=== PATIENT | male | born 1965 | race Caucasian/White ===

== ENCOUNTER 2020-07-27 07:18 | Inpatient (IN) | payer MEDICARE, MEDICAID ==
[~2020-07-27] VITALS: Ht 175.3 cm; Wt 92.6 kg
[2020-07-27] VITALS (438 sets, daily range): BP systolic 92–131; BP diastolic 58–76; PULSE 73–106; TEMP 97.1–98.1; O2SAT 94–100
[~2020-07-27 07:18] MED LIST: DESYREL 50MG50 MG PO; GLUCOPHAGE500 MG/TAB PO; NORCO 325 MG-7.1 TAB PO; PRINIVIL20 MG PO
--- NOTE | 2020-07-27 08:37 | NUR ---
Admitted to ICU 5 via stretcher with [facility] transporting from [facility]. Awakens easily when name called. ET 8.0 tube at 26cm, ventilator attached. Dr. Calabrese here at bedside. Assessment complete, monitors applied.
[2020-07-27 10:42] LABS: ARTERIAL BLD GAS TCO2 CT 24.4; ARTERIAL BLOOD GAS HCO3 23.3 meq/L (22-26); ARTERIAL BLOOD GAS PCO2 37.5 mmHg (35-45); ARTERIAL BLOOD GAS pH 7.41 (7.35-7.45)
[2020-07-27 10:44] LABS: HEMATOCRIT 37.2 % (42.0-52.0); HEMOGLOBIN 11.9 g/dl (13.5-18.0); MEAN CELL VOLUME 88 fl (80.0-100.0); MEAN CORPUSCULAR HEMOGLOBIN 28 pg (27.0-31.0); MEAN CORPUSCULAR HGB CONC 32 g/dl (33.0-37.0); MEAN PLATELET VOLUME 10.1 fl (7.4-10.4); PLATELET COUNT 232 K/mm3 (130-400); RED BLOOD COUNT 4.25 M/mm3 (4.20-5.60); REDCELL DISTRIBUTION WIDTH-CV 14.3 % (11.5-14.5)
[2020-07-27 10:53] LABS: ALBUMIN 3.4 gm/dL (3.5-5.0); BILIRUBIN,TOTAL 0.5 mg/dL (0.0-1.0); CALCIUM 8.1 mg/dL (8.4-10.2); CREATININE, serum 0.69 (0.66-1.25); POTASSIUM 4.9 mmol/L (3.4-5.0); TOTAL PROTEIN 5.8 gm/dL (6.4-8.2)
[2020-07-27] MEDS ORDERED: ZOLOFT 100MG100 MG PO (10:53)
[2020-07-27] MEDS ORDERED: LIPITOR 40MG TA40 MG PO (10:53)
[2020-07-27 10:54] LABS: MAGNESIUM 1.7 mg/dL (1.6-2.3); PHOSPHOROUS 4.5 mg/dL (2.5-4.5)
[2020-07-27] MEDS ORDERED: HYDRODIURIL50 MG PO (10:54)
[2020-07-27] MEDS ORDERED: JARDIANCE25 PO (10:56)
[2020-07-27 11:04] LABS: TROPONIN-I 0.022 ng/mL (0.000-0.035)
[2020-07-27 11:13] LABS: C-REACTIVE PROTEIN 1.3 mg/dL (0.0-0.9)
--- NOTE | 2020-07-27 11:35 | NUR ---
Spoke with patient's mom, Carley, updates given. Established emergency contact. Aware patient is COVID negative and could have 1 visitor while hospitalized, states understanding.
[2020-07-27 11:37] LABS: BAND 8 % (0-10); LYMPHOCYTE 7 % (20.0-51.0); NEUTROPHILS 84 % (42.0-75.2); PLATELET ESTIMATE NORMAL (NORMAL)
--- NOTE | 2020-07-27 11:42 | NUR ---
The patient was brought from [facility], intubated. Clinical Assistant contacted the patient's sister, Cara Gaines #[phone] to complete initial intake. The patient lives alone (with his dog, Alessandro) in [place]. Cara lives nearby and is caring for the patient's insulin needs. The patient uses a nebulizer and is independent with ADLs. The patient's PCP is Dr. Montejo and patient receives medications from [facility]. The patient does not have advanced directives in the EMR. Cara states they are complete and will have the patient's mother, Carley #[phone] bring in copy. The plan is to return home but SW will follow to ensure the patient has the safest discharge disposition as possible. PT/OT ordered.
--- NOTE | 2020-07-27 12:55 | NUR ---
To CT via bed with RT at side for airway support. [address] Mom calls for update, given. Mom states OK to share information with Kayla Amrik, as she is patient's cousin.
[2020-07-27 14:54] LABS: MUCOUS Present /lpf; PH 5 (5-8); SQUAMOUS EPITHELIAL 0-2 /hpf; URINE APPEARANCE Clear; URINE BACTERIA Rare /hpf; URINE BILIRUBIN Negative (NEGATIVE); URINE BLOOD 1+ (NEGATIVE); URINE COLOR Yellow; URINE GLUCOSE 3+ (NEGATIVE); URINE KETONE Trace (NEGATIVE); URINE LEUKOCYTE ESTERASE Negative (NEGATIVE); URINE NITRATE Negative (NEGATIVE); URINE PROTEIN(semi-quant) Negative (NEGATIVE); URINE UROBILINOGEN Negative (NEGATIVE)
--- NOTE | 2020-07-27 17:00 | NUR ---
Sedation vacation done at this time. Will monitor for s/s increased agitation or pain.
--- NOTE | 2020-07-27 19:25 | NUR ---
Received report from SAMIA Cornell. All drips and lines confirmed at the bedside. Bed is in the lowest position and all alarms are on. The call light is within reach. No further needs noted at this time. Will continue to monitor.
[2020-07-27 21:24] LABS: ARTERIAL BLOOD GAS BASE EXCESS -2.6 (-2-2); ARTERIAL BLOOD GAS HCO3 21.9 meq/L (22-26); ARTERIAL BLOOD GAS PCO2 37.1 mmHg (35-45); ARTERIAL BLOOD GAS PO2 113.2 mmHg (80-100); ARTERIAL BLOOD GAS pH 7.39 (7.35-7.45)
[2020-07-27 21:32] LABS: COLLECTION METHOD CLEAN CATCH
[2020-07-28] VITALS (806 sets, daily range): BP systolic 107–132; BP diastolic 66–84; PULSE 72–94; TEMP 97.3–98.1; O2SAT 65–100
--- NOTE | 2020-07-28 00:12 | NUR ---
Updated patient's mother, Carley, over the phone.
[2020-07-28 04:06] LABS: BASO % 0.1 % (0.0-2.0); EOS % 0.1 % (0-4.0); GRAN # 11.2 (1.4-6.5); GRAN % 83.6 % (42.2-75.2); HEMATOCRIT 38.4 % (42.0-52.0); HEMOGLOBIN 12.3 g/dl (13.5-18.0); LYMPH # 1.1 (1.2-3.4); LYMPH % 8.2 % (20.0-51.0); MEAN CELL VOLUME 88 fl (80.0-100.0); MEAN CORPUSCULAR HEMOGLOBIN 28 pg (27.0-31.0); MEAN CORPUSCULAR HGB CONC 32 g/dl (33.0-37.0); MONO % 7.2 % (1.7-9.3); PLATELET COUNT 252 K/mm3 (130-400); RED BLOOD COUNT 4.38 M/mm3 (4.20-5.60); REDCELL DISTRIBUTION WIDTH-CV 14.6 % (11.5-14.5)
[2020-07-28 04:20] LABS: CALCIUM 8.2 mg/dL (8.4-10.2); CREATININE, serum 0.72 (0.66-1.25); PHOSPHOROUS 3.8 mg/dL (2.5-4.5); POTASSIUM 3.7 mmol/L (3.4-5.0)
[2020-07-28 04:45] LABS: ARTERIAL BLD GAS O2 SATURATION 95.2 % (92-100); ARTERIAL BLD GAS TCO2 CT 26.6; ARTERIAL BLOOD GAS BASE EXCESS -0.4 (-2-2); ARTERIAL BLOOD GAS HCO3 25.2 meq/L (22-26); ARTERIAL BLOOD GAS PCO2 45.3 mmHg (35-45); ARTERIAL BLOOD GAS PO2 78.2 mmHg (80-100); ARTERIAL BLOOD GAS pH 7.36 (7.35-7.45)
--- NOTE | 2020-07-28 05:47 | NUR ---
PATIENT HAS NOT BEEN INTUBATED FOR 24HOURS. WILL HOLD OFF ON CPAP TRIAL THIS AM.
--- NOTE | 2020-07-28 07:20 | NUR ---
Bedside report given to SAMIA Cobos. Patient denies further needs at this time.
--- NOTE | 2020-07-28 07:44 | NUR ---
Sedation set to standby for AM lab draws. Sedation off a total of approximately 15 minutes. Patient alert and oriented x 4 prior to turning off sedation. Resumed sedation to aid with compliance with ET tube.
--- NOTE | 2020-07-28 09:40 | NUR ---
Initial visit; Patient thanked Bag Valver for looking in on him and offering prayer and God's blessings. Bag Valver will follow up.
[2020-07-28 11:41] LABS: ARTERIAL BLD GAS O2 SATURATION 96.9 % (92-100); ARTERIAL BLD GAS TCO2 CT 21.5; ARTERIAL BLOOD GAS BASE EXCESS -4.2 (-2-2); ARTERIAL BLOOD GAS HCO3 20.4 meq/L (22-26); ARTERIAL BLOOD GAS PCO2 35.8 mmHg (35-45); ARTERIAL BLOOD GAS pH 7.37 (7.35-7.45)
--- NOTE | 2020-07-28 15:43 | NUR ---
Patient extubated and placed on Bipap. Will check ABG in approx 90 minutes. Patient tolerated very well. VS remain WNL.
[2020-07-28 17:56] LABS: ARTERIAL BLD GAS O2 SATURATION 97.4 % (92-100); ARTERIAL BLD GAS TCO2 CT 24.6; ARTERIAL BLOOD GAS BASE EXCESS -1.3 (-2-2); ARTERIAL BLOOD GAS HCO3 23.4 meq/L (22-26); ARTERIAL BLOOD GAS PCO2 39.3 mmHg (35-45); ARTERIAL BLOOD GAS PO2 103.2 mmHg (80-100); ARTERIAL BLOOD GAS pH 7.39 (7.35-7.45)
--- NOTE | 2020-07-28 18:45 | NUR ---
PATIENT DID WELL WITH BIPAP FOLLOWING EXTUBATION. HE IS PLACED ON ROOM AIR AND MAINTAINS SPO2 AT 94%... RECEIVED OK TO FEED PATIENT FROM DR. CENTENO. SOFT DIET ORDERED SINCE HE HAS NO TEETH.
--- NOTE | 2020-07-28 19:05 | NUR ---
Received report from SAMIA Cobos.
[2020-07-29] VITALS (308 sets, daily range): BP systolic 121–139; BP diastolic 71–79; PULSE 69–88; TEMP 97.4–98.6; O2SAT 74–100
[2020-07-29 04:52] LABS: BASO % 0.2 % (0.0-2.0); GRAN # 11.2 (1.4-6.5); GRAN % 86.3 % (42.2-75.2); HEMOGLOBIN 11.5 g/dl (13.5-18.0); LYMPH % 7.9 % (20.0-51.0); MEAN CELL VOLUME 89 fl (80.0-100.0); MEAN CORPUSCULAR HEMOGLOBIN 28 pg (27.0-31.0); MEAN CORPUSCULAR HGB CONC 32 g/dl (33.0-37.0); MEAN PLATELET VOLUME 9.9 fl (7.4-10.4); MONO # 0.6 (0.1-0.6); MONO % 4.8 % (1.7-9.3); PLATELET COUNT 241 K/mm3 (130-400); RED BLOOD COUNT 4.11 M/mm3 (4.20-5.60); REDCELL DISTRIBUTION WIDTH-CV 14.6 % (11.5-14.5)
[2020-07-29 04:54] LABS: HEMATOCRIT 36.4 % (42.0-52.0)
[2020-07-29 05:04] LABS: CALCIUM 7.9 mg/dL (8.4-10.2); CREATININE, serum 0.6 (0.66-1.25); MAGNESIUM 2.4 mg/dL (1.6-2.3); PHOSPHOROUS 3.3 mg/dL (2.5-4.5); POTASSIUM 4.3 mmol/L (3.4-5.0)
[2020-07-29 05:18] LABS: ARTERIAL BLD GAS O2 SATURATION 97.7 % (92-100); ARTERIAL BLD GAS TCO2 CT 24.9; ARTERIAL BLOOD GAS BASE EXCESS -1.5 (-2-2); ARTERIAL BLOOD GAS HCO3 23.6 meq/L (22-26); ARTERIAL BLOOD GAS PCO2 41.2 mmHg (35-45); ARTERIAL BLOOD GAS PO2 108.8 mmHg (80-100); ARTERIAL BLOOD GAS pH 7.38 (7.35-7.45)
--- NOTE | 2020-07-29 07:30 | NUR ---
Shift handoff received from SAMIA Shafer.
--- NOTE | 2020-07-29 07:40 | NUR ---
Report given to SAMIA Mills.
--- NOTE | 2020-07-29 08:00 | NUR ---
Shift assessment complete at this time. Plan of care reviewed at bedside with patient. Additional time taken to address any other needs or concerns. Vitals stable at this time. He denies pain or any other discomforts. Call light within reach, will continue to monitor.
--- NOTE | 2020-07-29 12:00 | NUR ---
He is resting comfortably in bed. Denies pain or any other discomforts. All vitals stable. Will continue to monitor.
--- NOTE | 2020-07-29 13:59 | NUR ---
Attempted to call report to floor, accepting nurse at lunch, she will call back for report when done with her lunch break.
--- NOTE | 2020-07-29 15:10 | NUR ---
Report called to SAMIA Cates, will transfer Pt shortly
--- NOTE | 2020-07-29 15:36 | NUR ---
Pt transferred to room 351 at this time. Tolerated transfer well with no complaints or concerns raised.
--- NOTE | 2020-07-29 17:49 | NUR ---
Patient is alert and oriented, hoarse voice. denies any pain. multiple bruises in both arms. patient was transferred from ICU. Patient does not have any question or concern at this time.
--- NOTE | 2020-07-29 20:00 | NUR ---
Report received, assumed care for shift supervisor rn. Assessment complete. VS stable. A&Ox3. Denies pain/nausea/shortness of breath. Has a very hoarse voice-states throat is a little sore from intubation but not to terrible. Plan of care discussed for this shift to include HS meds/calling for needs. Verbalizes understanding. Call light in reach. Will monitor.
--- NOTE | 2020-07-29 20:01 | NUR ---
OBSERVED PATIENT HAVE AN OUTPUT.
[2020-07-30 03:55] VITALS: BP 128/79; PULSE 99; TEMP 98
--- NOTE | 2020-07-30 05:00 | NUR ---
Rested well this shift. Denies pain/nausea shortness of breath. VS remained stable. AM labs drawn from PICC line to right upper arm flushes well with good blood return. Voiding without difficulty/tolerating PO. Tele showing sinus rhythm. Wore BiPaP all night without difficulties. Denies currrent needs/concerns. Call light in reach. Will monitor.
[2020-07-30 05:52] LABS: ARTERIAL BLD GAS O2 SATURATION 97.7 % (92-100); ARTERIAL BLD GAS TCO2 CT 24.5; ARTERIAL BLOOD GAS BASE EXCESS -0.9 (-2-2); ARTERIAL BLOOD GAS HCO3 23.3 meq/L (22-26); ARTERIAL BLOOD GAS PCO2 37.4 mmHg (35-45); ARTERIAL BLOOD GAS PO2 110.3 mmHg (80-100); ARTERIAL BLOOD GAS pH 7.41 (7.35-7.45)
[2020-07-30 06:55] LABS: BASO % 0.1 % (0.0-2.0); GRAN % 75.8 % (42.2-75.2); HEMOGLOBIN 11.8 g/dl (13.5-18.0); LYMPH # 1.9 (1.2-3.4); LYMPH % 15.9 % (20.0-51.0); MEAN CELL VOLUME 88 fl (80.0-100.0); MEAN CORPUSCULAR HEMOGLOBIN 28 pg (27.0-31.0); MEAN CORPUSCULAR HGB CONC 32 g/dl (33.0-37.0); MEAN PLATELET VOLUME 10.5 fl (7.4-10.4); MONO # 0.9 (0.1-0.6); MONO % 7.6 % (1.7-9.3); PLATELET COUNT 257 K/mm3 (130-400); REDCELL DISTRIBUTION WIDTH-CV 14.4 % (11.5-14.5)
[2020-07-30 06:58] LABS: HEMATOCRIT 36.8 % (42.0-52.0)
[2020-07-30 07:09] LABS: CALCIUM 8.1 mg/dL (8.4-10.2); CREATININE, serum 0.58 (0.66-1.25); MAGNESIUM 2.7 mg/dL (1.6-2.3); PHOSPHOROUS 3.1 mg/dL (2.5-4.5); POTASSIUM 4.1 mmol/L (3.4-5.0)
[2020-07-30 08:13] VITALS: BP 127/75; PULSE 73; TEMP 97.5
--- NOTE | 2020-07-30 08:30 | NUR ---
Assessment complete. Pt sitting up in bed, A&O x 4. Pt denies pain or shortness of breath. PICC to right upper arm without s/s of complications. Physical assessment unremarkable. No further needs reported. Call light in reach.
--- NOTE | 2020-07-30 11:00 | NUR ---
Pt assisted with getting into shower and dressing after. Pt denies shortness of breath, reports feeling good after the shower. No further needs reported. Call light in reach.
[2020-07-30 11:05] VITALS: BP 118/68; PULSE 79; TEMP 98.1
--- NOTE | 2020-07-30 14:05 | NUR ---
SW contacted by nursing staff and stated patient's mother called and stated that she wanted to talk to case management about having the patient stay a little longer in order to get his apartment cleaning before returning. SW called patient's mother back and provided that it is up to the Dr to determine time of discharge, if medically needing to stay then the patient would stay longer. Mother of patient understood and asked SW if she knew the time of discharge. SW provided that Dr's do their rounds in the morning and a determination on time would could be made at that time, and that it could be as early as late morning or early afternoon if it is determined that patient would be discharged. Mother appreciated conversation and stated "that would be great". SW will continue to follow.
[2020-07-30 15:50] VITALS: BP 127/75; PULSE 67; TEMP 97.4
--- NOTE | 2020-07-30 18:19 | NUR ---
IVF's restarted to white port of right [place] central line per orders. Call light in reach.
[2020-07-30 20:09] VITALS: BP 118/78; PULSE 65; TEMP 98.4
--- NOTE | 2020-07-30 20:40 | NUR ---
Pt assessment completed and documented. Pt sitting up in bed watching television. Alert and oriented x4. Denies pain. Telemetry on. PICC to RUE CDI. Pt denies any needs/concerns. Call light within reach. Bed alarm on. Will continue to monitor
[2020-07-30 23:30] VITALS: BP 95/82; PULSE 67; TEMP 97.4
[2020-07-31 03:29] VITALS: BP 123/82; PULSE 61; TEMP 97.5
--- NOTE | 2020-07-31 07:00 | NUR ---
Pt currently resting in bed watching tv. States he slept well. No complaints of pain overnight. Pt denies any needs/concerns at this time. Call light within reach.
--- NOTE | 2020-07-31 07:29 | NUR ---
Report given to SAMIA Cates
[2020-07-31 07:39] VITALS: BP 118/74; PULSE 67; TEMP 98.1
[2020-07-31 07:44] LABS: CALCIUM 8.1 mg/dL (8.4-10.2); CREATININE, serum 0.58 (0.66-1.25); POTASSIUM 3.9 mmol/L (3.4-5.0)
--- NOTE | 2020-07-31 09:06 | NUR ---
Follow-up visit; Patient thanked Personal Banking Advisor for looking in on him and keeping him in her prayers.
[2020-07-31] MEDS ORDERED: PREDNISONE20 MG PO (09:21)
[2020-07-31] MEDS ORDERED: LEVAQUIN 750MG750 M1 PO (09:22)
[2020-07-31 12:02] VITALS: BP 112/65; PULSE 76; TEMP 98
--- NOTE | 2020-07-31 14:04 | NUR ---
Patient is alert and oriented, requires standby assist to ambulate. Patient denies any pain at this time. Catalina, refrigeration manager help remove PICC on patient right upper arm. Patient discharge home with new order for Levaquin and Prednisone. discussed followup appointment with patient. Patient discharge home with Sister and Mother.
--- NOTE | 2020-07-31 15:45 | NUR ---
Staff Internist Office Based Only attended clinical rounds with the team and patient to discharge home today. Patient has no concerns about returning home at this time. SW reviewed recommendation for outpatient PT and patient was agreeable. Patient would like to get set up with [facility] for outpatient PT. CYNTHIA contacted [facility] and set up an appointment for 08/01/20 @ 1330. CYNTHIA provided appointment to chemical unit operator, Liz. CYNTHIA contacted patient's mother, Carley who was with patient's sister, Cara. CYNTHIA provided update on discharge plan. Carley and Cara will orange picker machine operator patient later today. Patient had Exercise Oximetry and will not qualify for home oxygen. No additional needs at this time.
== END 2020-07-31 13:55 | disposition home or self-care (01) | DRG 208 ==
LOC: ICU 07:18 → MEDICAL 07-29 15:37
PROVIDERS: Internal Medicine Pulmonary Disease; ADMIT Student in an Organized Health Care Education/Training Program
PROC: 0BH17EZ Insertion of Endotracheal Airway into Trachea, Via Natural or Artificial Opening (ICD-10-PCS; principal; 2020-07-27)
PROC: 5A1935Z Respiratory Ventilation, Less than 24 Consecutive Hours (ICD-10-PCS; 2020-07-27)
PROC: 02HV33Z Insertion of Infusion Device into Superior Vena Cava, Percutaneous Approach (ICD-10-PCS; 2020-07-27)
DX: J96.01 Acute respiratory failure with hypoxia (principal); J44.1 Chronic obstructive pulmonary disease with (acute) exacerbation; J96.02 Acute respiratory failure with hypercapnia; D72.829 Elevated white blood cell count, unspecified; E09.65 Drug or chemical induced diabetes mellitus with hyperglycemia; T38.0X5A Adverse effect of glucocorticoids and synthetic analogues, initial encounter; E78.5 Hyperlipidemia, unspecified; F17.210 Nicotine dependence, cigarettes, uncomplicated; Z20.828 Contact with and (suspected) exposure to other viral communicable diseases; E66.9 Obesity, unspecified; F41.9 Anxiety disorder, unspecified; Z79.84 Long term (current) use of oral hypoglycemic drugs
CPT/HCPCS: 99223-AI; 99232-AI; 99233-AI; 99239; C1751; J0692; J1650; J1815; J1956; J2704; J2920; J3010; J3480; J7030; J7120; J7512; Q9967